=== PATIENT | male | born 1980 | race Two or more races ===

== ENCOUNTER 2024-08-06 08:09 | Emergency (ER) | payer MEDICAID ==
[~2024-08-06] VITALS: Ht 175.3 cm; Wt 120.2 kg
[2024-08-06 08:14] VITALS: O2SAT 98
[2024-08-06 08:41] LABS: BASOPHILS % 0.5 % (0.0-2.0); EOSINOPHILS % 1.5 % (0.0-5.0); HEMATOCRIT. 45.3 % (42.0-52.0); HEMOGLOBIN. 15.5 g/dL (14.0-18.0); LYMPHOCYTES % 31.4 % (20.0-50.0); MEAN CORPUSCULAR HEMOGLOBIN 31.2 pg (28.0-32.0); MEAN CORPUSCULAR HGB CONC 34.1 g/dL (31.0-37.0); MEAN CORPUSCULAR VOLUME 91.3 fL (80.0-94.0); MEAN PLATELET VOLUME 9.2 fl (7.4-10.4); MONOCYTES % 8.1 % (2.0-8.0); NEUTROPHILS % 58.5 % (40.0-76.0); PLATELET 254 x1000/uL (130-400); RED BLOOD CELL COUNT 4.96 mill/uL (4.7-6.1); RED CELL DISTRIBUTION WIDTH 13.9 % (11.6-14.6); WHITE BLOOD COUNT 8.2 x1000/uL (4.5-11.0)
[2024-08-06] MEDS: SODIUM CHLORIDE 0.9% 1,000 ML IV ONE (08:45)
[2024-08-06 08:48] LABS: CHLORIDE 106 mEq/L (98-107); POTASSIUM 4.2 mEq/L (3.5-5.1); SODIUM 143 mEq/L (136-145)
[2024-08-06 08:49] LABS: CALCIUM 9.4 mg/dL (8.7-10.4); CARBON DIOXIDE 29 mEq/L (21-32)
[2024-08-06 08:54] LABS: CREATININE 0.8 mg/dL (0.6-1.3); GLUCOSE 92 mg/dL (70-105); UREA NITROGEN BLOOD 10 mg/dL (9-23)
[2024-08-06 09:38] LABS: ALANINE AMINOTRANSFERASE 31 IU/L (10-49)
[2024-08-06 09:39] LABS: ALBUMIN 4.2 g/dL (3.2-4.8); ASPARTATE AMINOTRANSFERASE 18 IU/L (<34); BILIRUBIN TOTAL 0.3 mg/dL (0.1-1.0); PROTEIN TOTAL 6.9 g/dL (6.0-8.3)
[2024-08-06 09:44] LABS: BILIRUBIN DIRECT < 0.1 mg/dL (<=3.0)
[2024-08-06] MEDS: KETOROLAC 15MG/ML VIAL IV ONE (09:45)
[2024-08-06 14:05] LABS: CLARITY URINE CLEAR (CLEAR); COLOR URINE YELLOW (YELLOW); GLUCOSE URINE NEGATIVE (NEGATIVE); KETONES URINE NEGATIVE (NEGATIVE); LEUKOCYTE ESTERASE URINE NEGATIVE (NEGATIVE); NITRITE URINE NEGATIVE (NEGATIVE); OCCULT BLOOD URINE NEGATIVE (NEGATIVE); PROTEIN URINE NEGATIVE (NEGATIVE); SPECIFIC GRAVITY URINE 1.064 (1.005-1.030); UROBILINOGEN URINE 0.2 E.U./dL (0.2-1.0)
[2024-08-06] MEDS ORDERED: IOHEXOL-300 100 ML BOTTLE ONE (14:40)
[2024-08-06 15:51] VITALS: BP 125/70; PULSE 90; RESP 20; TEMP 36.8; O2SAT 98
== END 2024-08-06 15:53 | disposition home or self-care (01) ==
LOC: ER 08:48
DX: R10.32 Left lower quadrant pain (principal)
CPT/HCPCS: 99285; 74177; 96361; 96374; 80076; 80048; 81003; 83690; 85025; 36415; J1885; Q9967; J7030